=== PATIENT | female | born 1980 | race Two or more races ===

== ENCOUNTER 2021-02-21 10:24 | Emergency (ER) | payer MEDICAID ==
[~2021-02-21] VITALS: Ht 162.6 cm; Wt 93.0 kg
[2021-02-21 11:30] VITALS: BP 125/74
== END 2021-02-21 11:31 | disposition home or self-care (01) ==
LOC: ER 10:24
DX: G51.0 Bell's palsy (principal); R42 Dizziness and giddiness; F17.210 Nicotine dependence, cigarettes, uncomplicated; Z98.890 Other specified postprocedural states
CPT/HCPCS: 70450